=== PATIENT | female | born 1960 | race Caucasian/White ===

== ENCOUNTER 2023-01-23 08:58 | Day surgery (SDC) | payer BC ==
[~2023-01-23] VITALS: Ht 165.1 cm; Wt 91.4 kg
[2023-01-23] MEDS ORDERED: MIDAZOLAM HCL 5 MG/5 ML VIAL ONE (13:10)
[2023-01-23] MEDS ORDERED: fentaNYL CITRATE/PF 100 MCG/2 ML AMP ONE (13:10)
[2023-01-23] MEDS ORDERED: DEXAMETHASONE SOD PHOSPHATE 4 MG/ML VIAL ONE (13:10)
[2023-01-23] MEDS ORDERED: LR 1,000 ML IV.SOLN IV ONE (13:10)
[2023-01-23] MEDS ORDERED: ONDANSETRON HCL 4 MG/2 ML VIAL ONE (13:10)
[2023-01-23] MEDS ORDERED: NS IRRIG SOLN 1000 ML IR ONE (13:10)
[2023-01-23] MEDS ORDERED: SUGAMMADEX SODIUM 200 MG/2 ML VIAL IV ONE (13:10)
[2023-01-23] MEDS ORDERED: LIDOCAINE 2%, 20 ML MDV ONE (13:10)
[2023-01-23] MEDS ORDERED: PROPOFOL 200MG/ 20ML VIAL (DIPRIVAN) IV ONE (13:10)
[2023-01-23] MEDS ORDERED: DESFLURANE 15 MIN GAS INH ONE (13:10)
[2023-01-23] MEDS ORDERED: LIDOCAINE/EPI 1% 1:100000 20 ML VIAL ONE (13:10)
[2023-01-23] MEDS ORDERED: ROCURONIUM BROMIDE 10 MG/ML (ZEMURON) ONE (13:10)
[2023-01-23] MEDS ORDERED: ACETAMINOPHEN I.V. 1000 MG 100 ML IV ONE (13:27)
[2023-01-23] MEDS ORDERED: METOCLOPRAMIDE HCL 10 MG/2 ML VIAL IVP PRN (14:15)
[2023-01-23] MEDS ORDERED: HYDROmorphone 1 MG/ML INJ. CARTRIDGE IVP PRN ×2 (14:15)
[2023-01-23] MEDS ORDERED: MEPERIDINE HCL/PF 25 MG/ML DISP.SYRIN IVP PRN (14:15)
[2023-01-23] MEDS ORDERED: hydrALAZINE HCL 20 MG/ML VIAL IVP PRN (14:15)
[2023-01-23] MEDS ORDERED: LR 1,000 ML IV SCH (14:15)
[2023-01-23] MEDS ORDERED: LABETALOL 100 MG/ 20ML VIAL IVP PRN (14:15)
[2023-01-23] MEDS ORDERED: HYDROmorphone 1 MG/ML INJ. CARTRIDGE ONE (15:21)
[2023-01-23 17:30] VITALS: BP_SYST 148
== END 2023-01-23 17:30 | disposition home or self-care (01) ==
LOC: SDS 08:58 → SMU 09:07 → SDS 17:30
PROVIDERS: ATTEND Otolaryngology
DX: J34.89 Other specified disorders of nose and nasal sinuses (principal); D38.5 Neoplasm of uncertain behavior of other respiratory organs; J34.2 Deviated nasal septum; J30.2 Other seasonal allergic rhinitis; I10 Essential (primary) hypertension; E78.5 Hyperlipidemia, unspecified; H68.101 Unspecified obstruction of Eustachian tube, right ear; E78.00 Pure hypercholesterolemia, unspecified; Z20.822 Contact with and (suspected) exposure to COVID-19; Z79.899 Other long term (current) drug therapy
CPT/HCPCS: 30520; 36415; 88304; 88311; 87426; 30140; 31240; J3490; J1100; J2001; J2250; J2405; J2704; J3010; J1170; J7120; J0131